=== PATIENT | female | born 1960 | race Hispanic/Latino ===

== ENCOUNTER 2018-10-25 12:12 | Outpatient (CLI) | payer OTHER ==
--- NOTE | 2018-10-25 13:10 | ULT ---
THYROID ULTRASOUND INDICATION: Hyperthyroidism TECHNIQUE: Grayscale and color Doppler images were obtained of the thyroid gland. COMPARISON: None FINDINGS: Right thyroid lobe: The right thyroid lobe measures 4.5 x 1.9 x 1.8 cm. There is a 1.0 x 0.5 cm solid isoechoic nodule that is wider than tall but does contain some punctate echogenic foci and is consistent with a TIRADS 4 lesion. There is a hypoechoic solid nodule seen within the right thyroid l obe measuring 0.8 x 0.5 x 0.4 cm and is consistent with a TIRADS 4 lesion. Thyroid isthmus: The thyroid isthmus measures 0.3 cm. There is a solid 0.7 x 0.6 x 0.5 cm mixed echog enicity solid nodule within the left aspect of the thyroid isthmus consistent with a TIRADS 3 lesion. Left thyroid lobe: The left thyroid lobe measures 4.4 x 1.9 x 1.9 cm. There is a 0.9 x 0.3 x 0.6 cm s olid isoechoic nodule within the superior pole of the left thyroid lobe consistent with a TIRADS 3 lesion. 2 additional 5 mm solid nodules are seen within the superior pole left thyroid lobe. IMPRESSION: 1. Multinodular goiter. 2. Recommend ultrasound follow-up for the TIRADS 4 lesion seen within the right thyroid lobe.
== END 2018-10-25 12:13 | disposition home or self-care (01) ==
LOC: ULT 12:12
PROVIDERS: ATTEND Nurse Practitioner Family
DX: E05.90 Thyrotoxicosis, unspecified without thyrotoxic crisis or storm (principal); E04.2 Nontoxic multinodular goiter
CPT/HCPCS: 76536

== ENCOUNTER 2022-10-30 10:24 | Outpatient (CLI) | payer OTHER | END 2022-10-30 10:25 | disposition home or self-care (01) | LOC: BICMAMMO 10:24 | PROVIDERS: ATTEND Family Medicine | DX: Z12.31 Encounter for screening mammogram for malignant neoplasm of breast (principal); Z91.89 Other specified personal risk factors, not elsewhere classified | CPT/HCPCS: 77063; 77067 ==